=== PATIENT | female | born 1970 | race Caucasian/White ===

== ENCOUNTER → 2017-08-29 | Outpatient (CLI) | payer OTHER ==
[~2017-08-29] MED LIST: BUPIVACAINE 0.25% 30 ML SDV ONE
== END ==
LOC: FIMAGING 07:10
PROVIDERS: ATTEND Family Medicine
PROC: 0HBU3ZX Excision of Left Breast, Percutaneous Approach, Diagnostic (ICD-10-PCS; principal; 2017-08-29)
DX: N60.02 Solitary cyst of left breast (principal)